=== PATIENT | female | born 1955 | race Caucasian/White ===

== ENCOUNTER 2017-03-25 08:46 | Inpatient (IN) ==
[2017-03-20 16:52] LABS: Basophils # (Auto) 0 K/mcL (0.0-0.3); Basophils % (Auto) 0.3 % (0.0-2.0); Eosinophils # (Auto) 0.1 K/mcL (0.0-0.7); Eosinophils % (Auto) 1.7 % (0.0-7.0); Granulocytes % (Auto) 50.3 % (38.0-78.0); Lymphocytes # (Auto) 3.4 K/mcL (1.5-4.8); Lymphocytes % (Auto) 41.6 % (15.5-49.0); Mean Cell Volume 90.2 fL (80.0-100.0); Mean Corpuscular HGB Conc 33.1 g/dL (31.0-36.0); Mean Corpuscular Hemoglobin 29.9 pg (26.0-34.0); Monocytes # (Auto) 0.5 K/mcL (0.1-0.9); Monocytes % (Auto) 6.1 % (1.0-12.0); Platelet Count 246 K/mcL (140-440); RBC 4.91 M/mcL (4.00-5.20); Red Cell Distribution Width 14.4 % (11.5-14.5)
[2017-03-20 16:58] LABS: Blood Urea Nitrogen 18 mg/dl (6-20)
[2017-03-20 17:30] LABS: Appearance,Urine HAZY; Bacteria,Urine 0 /hpf (0); Bilirubin,Urine NEG (NEG); Calcium Oxalate Crystals,Urine MANY /hpf (0); Color,Urine AMBER; Glucose,Urine (UA) NEGATIVE (NEG); Leukocyte Esterase,Urine 25 /uL (NEG); Mucus,Urine FEW /hpf (0); Nitrate,Urine NEG (NEG); Protein,Urine NEG (NEG); Specific Gravity,Urine 1.025 (1.000-1.035); Urine Blood NEG mg/dL (<0.03); Urine RBC 2 /hpf (0-1); Urine Squamous Epithelial Cell 3 /hpf (0-4); Urine Transitional Epi Cells < 1 /hpf (0-2); Urine WBC 5 /hpf (0-4); Urobilinogen,Urine NEG (NEG)
[~2017-03-25 08:46] MED LIST: ACETAMINOPHEN 500 MG TABLET PO SCH; PREGABALIN 75 MG CAPSULE PO SCH; ceFAZolin 1 GM VIAL IV SCH
[2017-03-25 10:10] LABS: Appearance,Urine CLEAR; Bilirubin,Urine NEG (NEG); Color,Urine YELLOW; Glucose,Urine (UA) NEGATIVE (NEG); Leukocyte Esterase,Urine NEG /uL (NEG); Nitrate,Urine NEG (NEG); Protein,Urine NEG (NEG); Urine Blood NEG mg/dL (<0.03); Urobilinogen,Urine NEG (NEG)
[2017-03-25] MEDS ORDERED: KETOROLAC 30 MG, ROPIVACAINE HCL/PF 49.5 ML, EPINEPHrine 0.5 MG, 0.9 % SODIUM CHLORIDE ... IJ ONE (11:23)
[2017-03-25] MEDS ORDERED: LIDOCAINE HCL/PF 100 MG/5 ML SYRINGE IV ONE (12:10)
[2017-03-25] MEDS ORDERED: DEXAMETHASONE 10 MG/ML VIAL IV ONE (12:10)
[2017-03-25] MEDS ORDERED: TRANEXAMIC ACID 1,000 MG/10 ML VIAL IV ONE (12:10)
[2017-03-25] MEDS ORDERED: PHENYLEPHRINE 10 MG/ML VIAL IV ONE (12:10)
[2017-03-25] MEDS ORDERED: ONDANSETRON 4 MG/2 ML VIAL IV ONE (12:10)
[2017-03-25] MEDS ORDERED: PROPOFOL 200 MG/20 ML VIAL IV ONE (12:10)
[2017-03-25] MEDS ORDERED: MIDAZOLAM 5 MG/5 ML VIAL IV ONE (12:10)
[2017-03-25] MEDS ORDERED: GENTAMICIN SULFATE 800 MG/20 ML VIAL IR ONE (12:28)
[2017-03-25] MEDS ORDERED: fentaNYL 100 MCG/2 ML VIAL IV PRN (13:01)
[2017-03-25] MEDS ORDERED: LACTATED RINGERS 250 ML IV PRN (13:01)
[2017-03-25] MEDS ORDERED: NALOXONE HCL 0.4 MG/ML VIAL IV PRN (13:01)
[2017-03-25] MEDS ORDERED: MEPERIDINE 25 MG/ML SYRINGE IV PRN (13:01)
[2017-03-25] MEDS ORDERED: diphenhydrAMINE 50 MG/ML VIAL IV PRN (13:01)
[2017-03-25] MEDS ORDERED: IPRATROPIUM/ALBUTEROL 3 ML AMPUL.NEB NEB PRN (13:01)
[2017-03-25] MEDS ORDERED: PROMETHAZINE 25 MG/ML VIAL IV PRN (13:01)
[2017-03-25] MEDS ORDERED: ACETAMINOPHEN 1,000 MG/100 ML BOTTLE IV ONE (13:01)
[2017-03-25] MEDS ORDERED: ONDANSETRON 4 MG/2 ML VIAL IV PRN ×2 (13:01→13:28)
[2017-03-25] MEDS ORDERED: FLUMAZENIL 0.1 MG/ML ML IV PRN (13:01)
[2017-03-25] MEDS ORDERED: LACTATED RINGERS 1,000 ML IV SCH (13:15)
[2017-03-25] MEDS ORDERED: TRANEXAMIC ACID 1,000 MG/10 ML VIAL IV SCH (13:28)
[2017-03-25] MEDS ORDERED: FLEETS ADULT ENEMA PR PRN (13:28)
[2017-03-25] MEDS ORDERED: HYDROcodone/APAP 10/325MG TABLET PO PRN (13:28)
[2017-03-25] MEDS ORDERED: BISACODYL 10 MG SUPP.RECT PR PRN (13:28)
[2017-03-25] MEDS ORDERED: MAGNESIUM HYDROXIDE 30 ML ORAL.SUSP PO PRN (13:28)
[2017-03-25] MEDS ORDERED: HYDROmorphone 2 MG/ML SYRINGE IV PRN (13:28)
[2017-03-25] MEDS ORDERED: POLYETHYLENE GLYCOL 3350 17 GM PACKET PO PRN (13:28)
[2017-03-25] MEDS ORDERED: BENZOCAINE/MENTHOL 1 LOZENGE PO PRN (13:28)
--- NOTE | 2017-03-25 13:28 | Brief Operative Note ---
Date of procedure: 03/25/17 Pre-op diagnosis: Left hip djd Post-op diagnosis: same Procedure: left total hip Grafts/Implants: Yes Anesthesia: GETA Complications: none Surgeon: Agapito West Director Critical Care: Abdoulaye Lei Estimated blood loss (cc): 100 Specimens Removed/Pathology: none sent Condition: stable Disposition: PACU
[2017-03-25] MEDS ORDERED: CYCLOBENZAPRINE 10 MG TABLET PO PRN (13:30)
[2017-03-25] MEDS ORDERED: LORATADINE 10 MG TABLET PO PRN (13:30)
--- NOTE | 2017-03-25 14:07 | XRay Report ---
CLINICAL INFORMATION: Left total hip prostheses COMPARISON: None. FINDINGS: Left total hip prostheses is anatomically aligned. No osseous abnormality. Soft tissue swelling seen as expected IMPRESSION: Negative Interpreted and Authenticated by: Devon Soriano 03/25/17
--- NOTE | 2017-03-25 14:45 | XRay Report ---
CLINICAL INFORMATION: Postop total hip prostheses COMPARISON: None. FINDINGS: Left total hip prostheses is in near-anatomic alignment. Both SI and right hip joints are normal with alignment no osseous abnormalities. Soft tissue swelling seen over the surgical site IMPRESSION: Negative Interpreted and Authenticated by: Devon Soriano 03/25/17
[2017-03-25] MEDS: 0.9 % SODIUM CHLORIDE 10 ML SYRINGE IV SCH ×2 (14:49→23:09)
[2017-03-25] MEDS: KETOROLAC 15 MG/ML VIAL IV PRN ×2 (15:02→21:14)
[2017-03-25] MEDS: traMADol 50 MG TABLET PO PRN (16:49)
[2017-03-25] MEDS: 0.45 % SODIUM CHLORIDE 1,000 ML IV SCH ×2 (18:53→23:30)
[2017-03-25] MEDS: WARFARIN 5 MG TABLET PO SCH (19:14)
[2017-03-25] MEDS: ceFAZolin 1 GM VIAL IV SCH (19:14)
[2017-03-25] MEDS ORDERED: ASPIRIN 325 MG ENTERIC COATED TABLET PO SCH (21:00)
[2017-03-25] MEDS: SENNOSIDES 1 TABLET PO SCH (21:15)
[2017-03-25] MEDS: DOCUSATE SODIUM 100 MG CAPSULE PO SCH (21:15)
[2017-03-25] MEDS: ACETAMINOPHEN 325 MG TABLET PO PRN (21:15)
[2017-03-25] MEDS: SIMVASTATIN 20 MG TABLET PO SCH (21:15)
[2017-03-25] MEDS: metFORMIN 500 MG TABLET PO SCH (21:15)
[2017-03-25] MEDS: LOSARTAN 25 MG TABLET PO SCH (21:16)
[2017-03-25] MEDS: DULoxetine 20 MG CAPSULE PO SCH (21:16)
[2017-03-25] MEDS: Azelastine Hcl [Astepro] 1 SPRAY NAS SCH (21:32)
[2017-03-25] MEDS: TEMAZEPAM 15 MG CAPSULE PO PRN (23:09)
[2017-03-26] MEDS: traMADol 50 MG TABLET PO PRN ×3 (01:35→14:27)
[2017-03-26] MEDS: ceFAZolin 1 GM VIAL IV SCH (03:40)
[2017-03-26] MEDS: KETOROLAC 15 MG/ML VIAL IV PRN ×3 (03:50→20:29)
[2017-03-26] MEDS: 0.9 % SODIUM CHLORIDE 10 ML SYRINGE IV SCH ×3 (04:00→20:30)
--- NOTE | 2017-03-26 07:46 | Orthopedic Progress Note ---
Subjective Patient information: Note initiated : 03/26/17 at 7:45 am Service Date, if different from initiated Date: [] Patient: Amy Roberson 61 y/o F admitted on 03/25/17 for Arthroplasty Hip Total - Left. Chief Complaint: [Pt is stable this morning on post operative day 1 without any significant concerns or complaints. Patients vital signs have remained stable. Patients dressing is dry and exhibits a grossly intact neurovascular and neuromotor exam. Patients 10 point ROS is otherwise negative. ] Objective Vital signs: Vital Signs Temp Pulse Resp BP BP Pulse Ox 03/26/17 06:54 97 03/26/17 06:53 98.5 F 73 16 121/76 97 03/26/17 05:00 94 03/26/17 04:00 98.2 F 68 18 123/79 96 03/26/17 03:00 96 03/26/17 01:00 96 03/25/17 23:55 98.1 F 74 16 131/78 96 03/25/17 23:00 96 03/25/17 21:00 96 03/25/17 20:00 98.1 F 82 16 133/81 96 03/25/17 19:00 96 03/25/17 16:50 64 129/76 100 03/25/17 16:38 100 03/25/17 16:20 69 149/80 99 03/25/17 15:50 65 183/84 100 03/25/17 15:23 100 03/25/17 15:20 69 155/85 100 03/25/17 15:05 65 125/79 100 03/25/17 14:52 73 12 131/81 100 03/25/17 14:35 96.6 F L 81 145/77 97 03/25/17 14:26 97.9 F 77 15 142/60 100 03/25/17 14:21 80 17 139/60 100 03/25/17 14:15 85 14 132/61 100 03/25/17 14:08 82 15 132/56 100 03/25/17 14:03 80 16 150/61 100 03/25/17 13:57 84 14 145/61 100 03/25/17 13:52 105 H 15 132/59 99 03/25/17 13:46 92 H 16 135/58 99 03/25/17 13:41 97.5 F 97 H 12 147/63 96 03/25/17 09:35 96.3 F L 18 150/85 95 Intake and Output 03/25/17 03/26/17 03/26/17 21:59 05:59 13:59 Intake Total 220 / 220 700 / 700 Output Total 800 / 800 650 / 650 150 / 150 Balance -580 / -580 50 / 50 -150 / -150 Intake: IV 100 / 100 Oral 120 / 120 700 / 700 Output: Urine Catheter Amount 600 / 600 Void Amount 200 / 200 650 / 650 150 / 150 Other: Meal Dinner Percent of Meal Consumed 100% Weight 223 lb 8 oz Intake & Output: Intake & Output 03/25/17 03/26/17 03/26/17 21:59 05:59 13:59 Intake Total 220 / 220 700 / 700 Output Total 800 / 800 650 / 650 150 / 150 Balance -580 / -580 50 / 50 -150 / -150 Weight 223 lb 8 oz Intake: IV 100 / 100 Oral 120 / 120 700 / 700 Output: Urine Catheter Amount 600 / 600 Void Amount 200 / 200 650 / 650 150 / 150 Other: Meal Dinner Percent of Meal Consumed 100% Incision: Yes healing Incision clean and dry: Yes Dressing: Yes clean, Yes dry Weight bearing status: full Neurological exam IM: Yes motor sensory intact, Yes neurovascular intact Extremities exam IM: Yes Foot pink and warm, Yes neurovascular intact - Labs CBC & BMP: 03/26/17 05:07 03/20/17 13:50 Labs: Orthopedic Labs 03/26/17 03/20/17 05:07 13:50 PT 13.8 12.8 INR 1.0 0.9 APTT 28 03/26/17 03/20/17 05:07 13:50 Hgb 14.7 Hct 36.9 44.3 Assessment and Plan (1) Hx of total hip arthroplasty The patient has been educated regarding dressing care, Physical Therapy recommendations, home exercises, restrictions, and follow up appointments. The patient has had all necessary DME prescribed. The patient has remained stable during their hospital course. The patient was discharge with a stable exam. Status: Acute
--- NOTE | 2017-03-26 07:49 | Discharge Summary ---
Ortho Discharge - [facility] - Patient Instructions Diet: Regular Diet Activity: activity as tolerated, weight bearing as tolerated Total Hip Protocol: Follow activity instructions as provided by Physical Therapy. Dressing Care: May shower in 2 days - Problem Maintenance (1) Hx of total hip arthroplasty Status: Acute - Follow Up Plan Disposition: Home, Self-Care Prognosis: Good Rehab Potential: Good I certify that the patient requires SNF services: No Overall status at discharge: patient is progressing back to baseline - Orders For Discharge Prescriptions: Docusate Sodium [Colace] 100 mg PO BID #60 cap HYDROcodone/APAP 10/325MG [[place] 10/325Mg] 1 - 2 tab PO Q4HP PRN #75 tab PRN Reason: Pain Level 3-6
[2017-03-26] MEDS: DOCUSATE SODIUM 100 MG CAPSULE PO SCH ×2 (08:05→20:30)
[2017-03-26] MEDS: MULTIVIT,THER IRON,CA,FA & MIN 1 TABLET PO SCH ×2 (08:07→08:08)
[2017-03-26] MEDS ORDERED: [UNRECOGNIZED DRUG - OTHER] PO SCH (09:00)
[2017-03-26] MEDS ORDERED: PHOSPHO PO SCH (09:00)
[2017-03-26] MEDS ORDERED: AST PO SCH (09:00)
[2017-03-26] MEDS ORDERED: EPA PO SCH (09:00)
[2017-03-26] MEDS ORDERED: DHA PO SCH (09:00)
[2017-03-26] MEDS ORDERED: KRILL PO SCH (09:00)
[2017-03-26] MEDS: 0.45 % SODIUM CHLORIDE 1,000 ML IV SCH ×2 (09:25→20:31)
[2017-03-26] MEDS ORDERED: FLU VACC QS2017-18 36MOS UP/PF 60 MCG/0.5 ML SYRINGE IM ONE (10:00)
[2017-03-26] MEDS ORDERED: PNEUMOCOCCAL 23-VAL P-SAC VAC 0.5 ML VIAL IM ONE (10:00)
[2017-03-26] MEDS: WARFARIN 5 MG TABLET PO SCH (13:43)
[2017-03-26] MEDS: SIMVASTATIN 20 MG TABLET PO SCH (20:30)
[2017-03-26] MEDS: metFORMIN 500 MG TABLET PO SCH (20:30)
[2017-03-26] MEDS: LOSARTAN 25 MG TABLET PO SCH (20:30)
[2017-03-26] MEDS: SENNOSIDES 1 TABLET PO SCH (20:30)
[2017-03-26] MEDS: Azelastine Hcl [Astepro] 1 SPRAY NAS SCH (20:31)
[2017-03-26] MEDS: DULoxetine 20 MG CAPSULE PO SCH (20:42)
[2017-03-26] MEDS: TEMAZEPAM 15 MG CAPSULE PO PRN (23:14)
[2017-03-27] MEDS: 0.9 % SODIUM CHLORIDE 10 ML SYRINGE IV SCH (05:33)
[2017-03-27] MEDS: 0.45 % SODIUM CHLORIDE 1,000 ML IV SCH (05:41)
[2017-03-27] MEDS: ACETAMINOPHEN 325 MG TABLET PO PRN (07:58)
[2017-03-27] MEDS: MULTIVIT,THER IRON,CA,FA & MIN 1 TABLET PO SCH (08:54)
[2017-03-27] MEDS: DOCUSATE SODIUM 100 MG CAPSULE PO SCH (08:55)
[2017-03-27] MEDS ORDERED: WARFARIN 7.5 MG TABLET PO ONE (14:00)
== END 2017-03-27 12:20 | disposition home or self-care (01) | DRG 470 ==
LOC: MEDSUR 08:46
PROVIDERS: ADMIT Orthopaedic Surgery; ATTEND Orthopaedic Surgery